=== PATIENT | male | born 1985 | race Caucasian/White ===

== ENCOUNTER 2016-09-11 19:01 | Emergency (ER) | payer BC, OTHER ==
[2016-09-11 19:09] VITALS: BMI 30.1
--- NOTE | 2016-09-11 19:55 | PDOC ---
History of Present Illness - General History Source: Patient Exam Limitations: No Limitations - History of Present Illness Initial Comments: 09/11/16 20:04 The patient is a 31 year old male, with no significant past medical history, who presents to the emergency department complaining of chest pain for approximately 3 days. The patient reports his pain is localized to the left side of his chest and is nonradiating in nature. He describes his pain as a constant soreness with an occasional sharp sensation. He reports his pain is pleuritic in nature. He reports his pain is exacerbated when sitting up or when lifting his left arm. He rates his pain as a 7/10. Patient reports the pain woke him up in the middle of the night yesterday. The patient admits he recently returned from a 4 day weekend trip to [place], during which he consumed a lot of vodka and redbull. While in [place], the patient reports he experienced some congestion, during which he admits strongly blowing his nose, which may have caused his chest discomfort. He reports associated shortness of breath, but denies diaphoresis or palpitations. He denies any nausea, vomiting, diarrhea, constipation, or changes in urination patterns. He denies fever, chills, cough, headache, or dizziness. The patient reports he constantly travels for work. PAST MEDICAL HISTORY: Heart murmurs PAST SURGICAL HISTORY: Torn left ACL FAMILY HISTORY: Grandfather passed from an AL in his 60s. SOCIAL HISTORY: Pt is employed and travels for work. Pt is a former smoker(Quit 5-6 years ago). Patient admits trying cocaine approximately 10 years ago, but denies any other recreational drug use. Social ETOH use(5-6 drinks per week). ALLERGIES: NKDA <Delarosa,Giomilsy - Last Filed: 09/11/16 20:04> - General History Source: Patient Exam Limitations: No Limitations - History of Present Illness Initial Comments: 09/11/16 21:13 A portion of this note was documented by scribe services under my direction. I have reviewed the details of the note, within reason, and agree with the documentation. The case summary and management plan written by me. Assessment and plan: This is a 31-year-old male who comes in complaining of left-sided chest pain that is pleuritic in nature. There is also skeletal muscular component to it. Patient had a cardiogram that was normal and chest x-ray that was normal as well as a workup that was normal with the exception of everything but some mild elevated LFTs. Patient had just come off of the long weekend of partying and [place] which most likely contributed to his mild elevation in LFTs. Patient is otherwise healthy. He has a hard score of 1. His d-dimer is also negative. This most likely is skeletal muscular in nature. Patient was told to take a anti -inflammatory ibuprofen or Tylenol for the pain and follow-up with his doctor in 1 week if not improved. I <Jacque Muro I - Last Filed: 09/11/16 21:58> - General Chief Complaint: Pain, Acute Stated Complaint: epigastric pain Time Seen by Provider: 09/11/16 19:16 Past History <Bambi Delarosa - Last Filed: 09/11/16 20:04> - Past Medical History Other medical history: DENIES - Psycho/Social/Smoking Cessation Hx Anxiety: No Suicidal Ideation: No Smoking History: Former smoker Have you smoked in the past 12 months: No Information on smoking cessation initiated: No <Jacque Muro I - Last Filed: 09/11/16 21:58> - Past Medical History Allergies/Adverse Reactions: Allergies Allergy/AdvReac Type Severity Reaction Status Date / Time No Known Allergies Allergy Unverified 09/11/16 19:02 Home Medications: Ambulatory Orders NK [No Known Home Medication] 09/11/16 Review of Systems - Review of Systems Able to Perform ROS?: Yes Comments:: 09/11/16 20:04 General: No fevers or chills, no weakness, no weight loss. HEENT: No change in vision. No sore throat. No ear pain. CardioVascular: Yes: +chest pain, +shortness of breath. Respiratory: No cough, or wheezing. Gastrointestinal: No nausea, vomiting, diarrhea or constipation, No rectal bleeding. Genitourinary: No dysuria, hematuria, or frequency. Musculoskeletal: No joint or muscle pain or swelling. Neurologic: No headache, vertigo, dizziness or loss of consciousness. Psychiatric: No depression. Skin: No rashes or easy bruising. Endocrine: No increased thirst or abnormal weight change. Allergic: No skin or latex allergy All other systems reviewed and normal <Bambi Delarosa - Last Filed: 09/11/16 20:04> *Physical Exam - Vital Signs Last Vital Signs Temp Pulse Resp BP Pulse Ox 98.1 F 80 16 155/98 100 09/11/16 19:07 09/11/16 19:07 09/11/16 19:07 09/11/16 19:07 09/11/16 19:07 - Physical Exam Comments: 09/11/16 20:06 General: Well-nourished well-developed individual, no acute distress HEENT: Throat: Normal, tonsils normal, no erythema or exudate Neck: Supple, no meningeal signs, no lymphadenopathy Eyes::Pupils equal reactive and round, extraocular motion intact Chest: Nontender to palpation Cardiac: S1-S2 normal, regular rate and rhythm, no murmurs rubs or gallops Respiratory: Lungs clear to auscultation bilateral Abdomen: Soft, nondistended, normal bowel sounds, nontender to palpation diffusely Extremities: Warm, dry, no cyanosis, clubbing, or edema Skin: No rashes Neuro: Alert and oriented x3, nonfocal exam, grossly intact, normal gait Psych: Normal mood and affect <Bambi Delarosa - Last Filed: 09/11/16 20:04> - Vital Signs Last Vital Signs Temp Pulse Resp BP Pulse Ox 98.1 F 80 16 155/98 100 09/11/16 19:07 09/11/16 19:07 09/11/16 19:07 09/11/16 19:07 09/11/16 19:07 <Jacque Muro I - Last Filed: 09/11/16 21:58> Heart Score/ECG Review - History History: Slightly suspicious - Electrocardiogram EKG: Normal - Age Age: </= 46 - Risk Factors Risk Factors Heart Score: Yes Positive family hx of cardiac disease Based on the list above the patient has:: 1-2 risk factors - Troponin Troponin: </= normal limit - Score Heart Score - Total: 1 <Jacque Muro I - Last Filed: 09/11/16 21:58> ED Treatment Course - LABORATORY CBC & Chemistry Diagram: 09/11/16 20:15 09/11/16 20:15 <Jacque Muro I - Last Filed: 09/11/16 21:58> *DC/Admit/Observation/Transfer - Attestations Scribe Attestion: 09/11/16 20:06 Documentation prepared by Bambi Delarosa, acting as medical data entry clerk for Jacque Muro MD. <Bambi Delarosa - Last Filed: 09/11/16 20:04> - Discharge Dispostion Admit: No <Jacque Muro I - Last Filed: 09/11/16 21:58> Diagnosis at time of Disposition: Atypical chest pain - Discharge Dispostion Disposition: HOME Condition at time of disposition: Stable - Patient Instructions Printed Discharge Instructions: DI for Atypical Chest Pain Additional Instructions: Tylenol or Motrin as needed for pain. Return to the emergency department immediately with ANY new, persistent or worsening symptoms. Continue any medications as previously prescribed by your physician. You should follow up with your primary doctor as soon as possible regarding today's emergency department visit. . Please make sure your doctor reviews the results of your emergency evaluation. Thank you for coming to the Emergency Department today for your care. It was a pleasure to see you today. Please note that your evaluation is INCOMPLETE until you follow-up with your doctor.
[2016-09-11 20:27] VITALS: BP 155/98; PULSE 80; TEMP 98.1
[2016-09-11 20:40] LABS: BASOPHIL 1.5 % (0-2.0); EOSINOPHIL 1.7 % (0-4.5); MCH 31.4 pg (25.7-33.7); MCHC 34.8 g/dl (32.0-35.9); MEAN CELL VOLUME 90.3 fl (80-96); MEAN PLT VOLUME 8.3 fl (7.5-11.1); NEUTROPHILS 57.7 % (42.8-82.8); PLATELET COUNT 230 K/MM3 (134-434); RDW 12.4 % (11.9-15.9); WHITE BLOOD COUNT 7.8 K/mm3 (4.0-10.8)
[2016-09-11 20:57] LABS: ALBUMIN 4.7 g/dl (3.5-5.0); ALK PHOS 79 U/L (32-92); ANION GAP 8 (8-16); BILIRUBIN,TOTAL 0.6 mg/dl (0.2-1.0); CALCIUM 9.7 mg/dl (8.4-10.2); CO2 29 mmol/L (22-28); CPK(DFH) 91 IU/L (38-174); GLUCOSE,RANDOM 91 mg/dl (74-106); SGOT/AST 50 U/L (10-42); SGPT/ALT 88 U/L (10-40); TOT PROT 7.6 g/dl (6.4-8.3)
[2016-09-11] MEDS ORDERED: KETOROLAC TROMETHAMINE 30 MG/1 ML VIAL IVPUSH ONE (21:17)
[2016-09-11] MEDS ORDERED: KETOROLAC TROMETHAMINE 30 MG/1 ML VIAL ONE (21:18)
[2016-09-11 21:53] LABS: TROPONIN I (DFP) < 0.03 ng/ml (0.03-0.50)
--- NOTE | 2016-09-12 12:32 | EKG ---
Test Reason : Blood Pressure : / mmHG Vent. Rate : 063 BPM Atrial Rate : 063 BPM P-R Int : 174 ms QRS Dur : 092 ms QT Int : 400 ms P-R-T Axes : 050 -07 020 degrees QTc Int : 409 ms NORMAL SINUS RHYTHM MINIMAL VOLTAGE CRITERIA FOR LVH, MAY BE NORMAL VARIANT BORDERLINE ECG NO PREVIOUS ECGS AVAILABLE Confirmed by JYOTSNA HORVATH MD ([id number] on 09/12/2016 12:31:39 PM Referred By: TAJ Confirmed By:JYOTSNA HORVATH MD
== END 2016-09-11 22:05 | disposition home or self-care (01) ==
LOC: FER 19:01
PROC: 3E0333Z Introduction of Anti-inflammatory into Peripheral Vein, Percutaneous Approach (ICD-10-PCS; principal; 2016-09-11)
DX: R07.89 Other chest pain (principal); Z87.891 Personal history of nicotine dependence
CPT/HCPCS: 36415; 71010-TC; 80053; 82550; 84484; 85025; 85379; 93005; 99282-25